=== PATIENT | male | born 1980 | race Caucasian/White ===

== ENCOUNTER 2018-07-14 20:06 | Emergency (ER) | payer BC ==
[~2018-07-14] VITALS: Ht 167.6 cm; Wt 70.5 kg
[2018-07-14 21:13] VITALS: Ht 167.6 cm; Wt 70.5 kg
[2018-07-14] MEDS ORDERED: HYDROCODONE/APAP (5/325) TAB PO ONE (22:30)
[2018-07-14] MEDS ORDERED: IBUPROFEN 600 MG TAB PO ONE (22:30)
[2018-07-14] MEDS ORDERED: HYDR-4011 PO (23:25)
[2018-07-14] MEDS ORDERED: IBUP-1542 PO (23:25)
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
[2018-07-14 23:45] VITALS: BP 114/66; PULSE 65; RESP 18
== END 2018-07-14 23:46 | disposition home or self-care (01) ==
LOC: FTE 20:06
DX: S93.601A Unspecified sprain of right foot, initial encounter (principal); V03.10XA Pedestrian on foot injured in collision with car, pick-up truck or van in traffic accident, initial encounter
CPT/HCPCS: 73610; 73630; 99283; Z7610